=== PATIENT | female | born 1950 ===

== ENCOUNTER 2018-05-20 06:56 | Day surgery (SDC) | payer OTHER ==
[2016-12-08 09:34] VITALS: BMI 33.4
[2018-05-20] MEDS ORDERED: Lactated Ringer's 500 ML IV ONE ×2 (10:24→11:00)
[2018-05-20] MEDS ORDERED: Propofol 10 mg/ml Inj (20 ML) ONE ×2 (10:32→10:59)
[2018-05-20] MEDS ORDERED: Midazolam 2 MG/2 ML VIAL ONE (10:32)
[2018-05-20 11:33] VITALS: TEMP 97.3
[2018-05-20 15:25] VITALS: O2SAT 100
[2018-05-20 15:29] VITALS: BP 121/88; PULSE 77; RESP 14
== END 2018-05-20 12:30 | disposition home or self-care (01) ==
LOC: C.ENDO 06:56
PROVIDERS: ATTEND Internal Medicine Gastroenterology
DX: R10.11 Right upper quadrant pain (principal); R19.7 Diarrhea, unspecified; D12.4 Benign neoplasm of descending colon; K64.8 Other hemorrhoids; R10.13 Epigastric pain; K29.70 Gastritis, unspecified, without bleeding
CPT/HCPCS: 43239; 45380; 82948; 88305; J2001; J2250; J2704; J3010; J7120